=== PATIENT | male | born 1960 | race African-American/Black ===

== ENCOUNTER 2018-10-29 00:09 | Emergency (ER) | payer OTHER ==
[~2018-10-29] VITALS: Ht 188 cm; Wt 114.0 kg
[2018-10-29 02:37] VITALS: BP 103/70
== END 2018-10-29 02:39 | disposition home or self-care (01) ==
LOC: ER 00:09
DX: H53.8 Other visual disturbances (principal); I10 Essential (primary) hypertension; H40.9 Unspecified glaucoma; Z86.73 Personal history of transient ischemic attack (TIA), and cerebral infarction without residual deficits; Z98.890 Other specified postprocedural states
CPT/HCPCS: 99283; Z7610